=== PATIENT | male | born 2005 | race Hispanic/Latino ===

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

== ENCOUNTER 2024-11-10 22:01 | Emergency (ER) | payer OTHER, SELFPAY ==
[2024-11-10] MEDS ORDERED: diphenhydrAMINE 25 MG CAP ONE (22:24)
[2024-11-10] MEDS ORDERED: predniSONE 20 MG TAB ONE (22:24)
[2024-11-10] MEDS ORDERED: Famotidine 20 MG TAB ONE (22:24)
== END 2024-11-10 23:43 | disposition home or self-care (01) ==
LOC: ERS 22:01
DX: T78.1XXA Other adverse food reactions, not elsewhere classified, initial encounter (principal); R21 Rash and other nonspecific skin eruption
CPT/HCPCS: 99282; J7512